=== PATIENT | male | born 1960 | race African-American/Black ===

== ENCOUNTER 2018-02-25 11:52 | Emergency (ER) | payer MEDICAID ==
[~2018-02-25] VITALS: Ht 170.2 cm; Wt 68.2 kg
[2018-02-25 15:42] VITALS: BP 169/99
== END 2018-02-25 15:51 | disposition home or self-care (01) ==
LOC: EMS 11:54
DX: M25.511 Pain in right shoulder (principal); G89.29 Other chronic pain; R03.0 Elevated blood-pressure reading, without diagnosis of hypertension
CPT/HCPCS: 99282